=== PATIENT | male | born 1975 | race Two or more races ===

== ENCOUNTER 2019-08-17 09:00 | Day surgery (SDC) | payer OTHER | END 2019-08-17 17:00 | disposition home or self-care (01) | LOC: AMB-ENDOS 09:00 → EDBD 14:45 → AMB-ENDOS 17:00 | DX: K63.5 Polyp of colon (principal); K64.2 Third degree hemorrhoids; Z12.11 Encounter for screening for malignant neoplasm of colon ==

== ENCOUNTER 2020-07-21 15:28 | Outpatient (CLI) | payer OTHER | END 2020-07-21 15:47 | disposition home or self-care (01) | LOC: RAD 15:28 | PROVIDERS: ATTEND Internal Medicine Geriatric Medicine | DX: I11.9 Hypertensive heart disease without heart failure (principal) ==

== ENCOUNTER 2020-07-23 06:29 | Day surgery (SDC) | payer OTHER | END 2020-07-23 16:31 | disposition home or self-care (01) | LOC: CIR.AMB 06:29 | PROVIDERS: ATTEND Colon & Rectal Surgery | DX: K64.8 Other hemorrhoids (principal); K64.4 Residual hemorrhoidal skin tags; K64.1 Second degree hemorrhoids; A63.0 Anogenital (venereal) warts; Z20.828 Contact with and (suspected) exposure to other viral communicable diseases ==